=== PATIENT | male | born 1955 | race African-American/Black ===

== ENCOUNTER 2021-04-24 03:14 | Emergency (ER) | payer SELFPAY ==
[2021-04-24] MEDS ORDERED: Vancomycin 1.5 GRAM/300 ML BAG 1.5 GM in Premix Bag 1 BAG IVPB SCH (03:45)
[2021-04-24] MEDS ORDERED: Fentanyl CADD 100 ML IV SCH (03:45)
[2021-04-24] MEDS ORDERED: cefTRIAXone\\ROCEPHIN 2 GM VIAL ONE (03:52)
[2021-04-24] MEDS ORDERED: SODIUM CHLORIDE 0.9% IVPB SCH ×2 (04:00→04:15)
[2021-04-24] MEDS ORDERED: FOSPHENYTOIN SODIUM IVPB SCH (04:00)
[2021-04-24] MEDS ORDERED: PHENOBARBITAL SODIUM IVPB SCH (04:15)
[2021-04-24 04:22] LABS: Bacteria/HPF None Seen HPF (None Seen); Bilirubin Negative (Negative); Blood, Urine 2+ (Negative); Clarity Clear (Clear); Glucose, Urine (Dipstick) Normal (Negative); Ketone, Urine Negative (Negative); Leukocyte Negative Leu/uL (Negative); Nitrite Negative (Negative); Protein, Urine (Dipstick) 50 mg/dL (Neg-Trace); Squamous Epithelial 0-3 HPF (0-3); Urobilinogen Normal mg/dL (Less than 2); WBC/HPF 0-3 HPF (0-3); pH, Urine 6.5 (5.0-9.0)
[2021-04-24 04:26] LABS: Actual Bicarbonate (HCO3a) 18.4 mEq/L (22-28); Analyzer IN Cardio ER; Base Excess (BEa) -7.1 mEq/L (-2.0 to +3.0); CO2 Tension 37.2 mmHg (35.0-45.0); Calcium, Ionized (arterial) 1.13 mmol/L (1.12-1.30); Carboxyhemoglobin (COHb) 0.3 gm% (0.0-3.0); Hemoglobin (Hb) 11.7 g/dL (14.0-18.0); O2 Tension (PaO2), arterial 475.2 mmHg (> 80.0); Potassium - ABG Lab 3.13 mmol/L (3.70-5.30); pH, Arterial 7.31 (7.35-7.45)
[2021-04-24 04:35] LABS: #Basophils 0.1 thou/uL (0.0-0.2); #Lymphocytes 2.5 thou/uL (1.20-3.40); #Monocytes 0.6 thou/uL (0.11-0.59); #Neutrophils 10.7 thou/uL (1.40-6.50); %Basophils 0.4 % (0.0-1.0); %Eosinophils 0.3 % (0.0-10.0); %Lymphocytes 17.9 % (21.0-51.0); %Neutrophils 77.3 % (42.0-75.0); Hemoglobin 11.1 g/dL (14.0-18.0); Mean Corpuscular HGB CONC 32.7 g/dL (32.0-36.0); Mean Corpuscular Hemoglobin 32.8 pg (27.0-31.0); Platelet Count 330 thou/uL (130-400); RBC Distribution Width 12.6 % (11.5-14.5); Red Blood Cell (RBC) Count 3.39 mill/uL (4.70-6.10); White Blood Cell (WBC) Count 13.9 thou/uL (4.8-10.8)
[2021-04-24 04:44] LABS: SARS-CoV-2 NAA Rapid Test Not Detected (NotDetected)
[2021-04-24 04:53] LABS: Puncture Site LRA
[2021-04-24 05:01] LABS: ALT (SGPT) Less than 7 U/L (8-55); AST (SGOT) 18 U/L (5-34); Albumin 3.2 g/dL (3.4-4.8); Alkaline Phosphatase 66 U/L (40-110); Anion Gap 17 mmol/L (10-20); BUN (Urea Nitrogen) 7 mg/dL (8.4-25.7); Bilirubin, Total 0.5 mg/dL (0.2-1.2); Calc. Creatinine Clearance 0 mL/min (70-130); Calcium 8.2 mg/dL (7.8-10.44); Carbon Dioxide 16 mmol/L (23-31); Chloride 102 mmol/L (98-107); Globulin 4.5 g/dL (2.4-3.5); Glucose 153 mg/dL (80-115); Potassium 3.1 mmol/L (3.5-5.1); Protein, Total 7.7 g/dL (5.8-8.1); Sodium 132 mmol/L (136-145)
[2021-04-24] MEDS ORDERED: Lorazepam 2 MG/ML VIAL ONE (07:15)
[2021-04-24] MEDS ORDERED: Succinylcholine 200 MG/10 ml SYRINGE FS ONE (07:15)
[2021-04-24 07:53] LABS: Lactic Acid 8.2 mmol/L (0.5-2.2)
[2021-04-24] MEDS ORDERED: Norepinephrine 8 MG/0.9% NS 250 ML ONE (08:11)
[2021-04-24] MEDS ORDERED: Acetaminophen 650 MG Suppository ONE (08:13)
[2021-04-24] MEDS ORDERED: Acetaminophen 325 MG Suppository ONE (08:13)
[2021-04-24] MEDS ORDERED: Acetaminophen 500 MG TAB ONE (08:13)
== END 2021-04-24 08:26 | disposition short-term general hospital (02) ==
LOC: EDBD 03:14 → ERS 03:14
DX: R56.9 Unspecified convulsions (principal); A41.9 Sepsis, unspecified organism; Z20.822 Contact with and (suspected) exposure to COVID-19
CPT/HCPCS: 0240U; 31500; 36415; 36556; 36600; 51702; 70450; 70486; 71045; 72125; 80053; 81003; 81015; 82805; 83605; 85025; 87040; 87149; 93005; 96365; 96366; 96368; 96375; 99292; J0696; J1953; J2060; J2560; J3010; J3370; J3490; Q2009